=== PATIENT | male | born 1955 | race Hispanic/Latino ===

== ENCOUNTER 2020-10-16 17:37 | Emergency (ER) | payer MEDICARE ==
[~2020-10-16] VITALS: Ht 170.2 cm; Wt 56.7 kg
[2020-10-16 18:26] LABS: BASOPHILS % 0.2 % (0.0-1.0); HEMATOCRIT 50.9 % (38.2-49.6); HEMOGLOBIN 16.5 g/dL (14.0-18.0); LYMPHOCYTES # (AUTO) 0.8 (1.0-3.2); LYMPHOCYTES % 13.8 % (18.0-39.1); MEAN CORPUSCULAR HEMOGLOBIN 29.5 pg (28-32); MEAN CORPUSCULAR HGB CONC 32.4 g/dL (31-35); MEAN CORPUSCULAR VOLUME 90.9 fL (81-99); MONOCYTES # (AUTO) 0.4 (0.2-0.8); MONOCYTES % 7.2 % (4.4-11.3); NEUTROPHILS # (AUTO) 4.4 (2.1-6.9); NEUTROPHILS % 78.3 % (38.7-80.0); PLATELET COUNT 205 x10e3/uL (140-360); RED CELL DISTRIBUTION WIDTH 13.9 % (11.7-14.4)
[2020-10-16 18:52] LABS: ALBUMIN 3.1 g/dL (3.5-5.0); ALBUMIN/GLOBULIN RATIO 0.9 (0.8-2.0); ANION GAP 10.8 mmol/L (8-16); CALCIUM 8.2 mg/dL (8.4-10.2); CREATININE, SERUM 1.51 mg/dL (0.72-1.25); POTASSIUM 4.8 mmol/L (3.5-5.1)
[2020-10-16 22:05] VITALS: BP 114/73
== END 2020-10-16 20:34 | disposition home or self-care (01) ==
LOC: ER 18:14
DX: R53.83 Other fatigue (principal); R53.81 Other malaise; I10 Essential (primary) hypertension
CPT/HCPCS: 36415; 71045; 80053; 83880; 84484; 85025; 93005; 99283